=== PATIENT | female | born 1960 | race Caucasian/White ===

== ENCOUNTER 2018-01-29 12:28 | Emergency (ER) | payer MEDICAID ==
[2018-01-29 12:47] VITALS: BMI 43.8
--- NOTE | 2018-01-29 13:15 | ED PDOC ---
Arrival/HPI - General Chief Complaint: Back Pain Time Seen by Provider: 01/29/18 13:12 Historian: Patient - History of Present Illness Narrative History of Present Illness (Text): 01/29/18 13:13 57 year old female, with no significant past medical history, who presents to the emergency department complaining of right lower back pain that radiates to the hip, thigh, and knee x 1 week. Patient describes as a shooting pain with movement. Patient notes she takes ibuprofen with minimal relief. Patient denies any fever, chills, chest pain, shortness of breath, nausea, vomiting, diarrhea, headache, dizziness, or any other complaints. Time/Duration: 1 week Symptom Onset: Gradual Symptom Course: Unchanged Activities at Onset: Light Context: Home Past Medical History - Provider Review Nursing Documentation Reviewed: Yes - Pulmonary Hx Respiratory Disorders: No - Neurological Hx Neurological Disorder: No - HEENT Hx HEENT Disorder: No - Renal Other/Comment: unknown kidney problems. - Endocrine/Metabolic Hx Endocrine Disorders: No - Hematological/Oncological Hx Blood Disorders: No - Integumentary Hx Dermatological Disorder: No - Musculoskeletal/Rheumatological Hx Musculoskeletal Disorders: No - Gastrointestinal Hx Gastrointestinal Disorders: No - Genitourinary/Gynecological Hx Genitourinary Disorders: No - Psychiatric Hx Psychophysiologic Disorder: No Hx Substance Use: No Family/Social History - Physician Review Nursing Documentation Reviewed: Yes Family/Social History: Unknown Family HX Smoking Status: Never Smoked Hx Alcohol Use: No Hx Substance Use: No Allergies/Home Meds Allergies/Adverse Reactions: Allergies Penicillins Allergy (Verified 01/29/18 12:47) SWELLING Home Medications: Home Meds Medication Instructions Recorded Confirmed Acetaminophen [Pain Reliever] 500 mg PO DAILY 01/29/18 01/29/18 Atenolol [Tenormin] 100 mg PO DAILY 01/29/18 01/29/18 Atorvastatin [Lipitor] 10 mg PO DAILY 01/29/18 01/29/18 Levothyroxine [Synthroid] 100 mcg PO DAILY 01/29/18 01/29/18 amLODIPine [Norvasc] 10 mg PO DAILY 01/29/18 01/29/18 Review of Systems - Physician Review All systems were reviewed & negative as marked: Yes - Review of Systems Constitutional: Normal Eyes: Normal ENT: Normal Respiratory: Normal. absent: SOB, Cough Cardiovascular: Normal. absent: Chest Pain Gastrointestinal: Normal. absent: Abdominal Pain, Diarrhea, Nausea, Vomiting Genitourinary Female: Normal. absent: Dysuria, Frequency Musculoskeletal: Back Pain (rt lower back pain that radiates to hip, thigh, and knee.) Skin: Normal. absent: Rash Neurological: Normal. absent: Headache, Dizziness Endocrine: Normal Hemo/Lymphatic: Normal Psychiatric: Normal Physical Exam - Physical Exam Narrative Physical Exam (Text): 01/29/18 13:26 Gen: VS reviewed, alert, well developed, well nourished, nontoxic, mild distress. ENT: normal pharynx. Eye: EOMI, PERRL. Neck: no JVD, supple, no adenopathy. CV: regular rate, regular rhythm, no rubs, no murmur, no gallops, S1, S2, pulses equal and strong. Pulm: no distress, clear to auscultation, no wheeze, no rhonchi, breath sounds equal, no rales. Abd: soft, nontender, no guarding, no rebound, no rigidity, normal bowel sounds. Ext: Decreased ROM at hip. no edema. tenderness SI joint. Evulsion at right Alfred's Surface of DIP joint of 4th digit. Skin: good color, no rash, no cyanosis. Psych: responds appropriately to questions, normal affect. Neuro: oriented x 3, CN2-12 intact grossly, motor intact, sensation intact. Vital Signs Temp Pulse Resp BP Pulse Ox 01/29/18 14:57 97.9 F 55 L 18 140/73 96 Medical Decision Making ED Course and Treatment: 01/29/18 13:29 Impression: 57 year old female presents to the emergency department complaining of right lower back pain that radiates to the hip, thigh, and knee. Plan: -- Tylenol -- Flexeril -- Toradol -- Boostrix Vaccine -- Xray Rt Hip -- Xray rt knee -- Xray LS Spine -- Reassess and disposition Progress Notes: 01/29/18 14:30 Xray Hip/Pelvis: BONES: Bone alignment and mineralization are normal. There is no acute displaced fracture or bone destruction. JOINTS: Normal. SOFT TISSUES: Normal. OTHER FINDINGS: None. IMPRESSION: No acute fracture or dislocation. 01/29/18 14:30 Right Knee X-ray: Creator : Ari Harris MD IMPRESSION: There is joint space narrowing in the medial compartment 01/29/18 14:30 Lumbar Spine X-ray: Creator : Marleny Kumar MD IMPRESSION: No acute fracture, spondylolysis or spondylolisthesis. Mild multilevel degenerative disc disease, worse at L2-3 and L5-S1. 01/29/18 16:19 patient feels much better and ready to go home. patient presents with radicualr low back pain but no associated trauma/fever/hx cancer/neuro deficits such as saddle anesthesia/weakness or numbness. patient remained stable throughout ED course. patient will follow up with her pcp. - RAD Interpretation Radiology Orders: 01/29/18 13:13 HIP MIN 2V W/ PELVIS RT [RAD] Stat LS SPINE WITH OBL > 18 YRS OLD [RAD] Stat 01/29/18 13:14 KNEE W PATELLA RIGHT 3 VIEW [RAD] Stat Net Front End Developer: Radiologist - Medication Orders Current Medication Orders: Discontinued Medications Acetaminophen (Tylenol 325mg Tab) 975 mg PO STAT STA Stop: 01/29/18 13:16 Last Admin: 01/29/18 15:32 Dose: 975 mg MAR Pain/Vitals Document 01/29/18 15:32 [email or web address] (Rec: 01/29/18 15:32 [email or web address] [facility] [id number][place] Pain Reassessment Is This A Pain ReAssessment? No Sleep Is patient sleeping during reassessment? No Presence of Pain Presence of Pain Yes Pain Scale Used Pain Scale Used Numeric Location Pain Location Body Site Generalized Description Constant Intensity 7 Scale Used Numeric Pain Behavior Facial Grimacing Aggravating Factors Changing Position Alleviating Factors Medication Cyclobenzaprine HCl (Flexeril) 5 mg PO STAT STA Stop: 01/29/18 13:16 Last Admin: 01/29/18 15:32 Dose: 5 mg Ketorolac Tromethamine (Toradol) 60 mg IVP STAT STA Stop: 01/29/18 13:16 Last Admin: 01/29/18 15:32 Dose: 60 mg MAR Pain Assessment Document 01/29/18 15:32 [email or web address] (Rec: 01/29/18 15:33 [email or web address] [facility] [place] [id number]) Pain Reassessment Is this a pain reassessment? No Sleep Is patient sleeping during reassessment? No Presence of Pain Presence of Pain Yes Pain Scale Used Pain Scale Used Numeric Location Pain Location Body Site Generalized Description Description Constant Intensity of Pain at present 7 Pain Behavior Facial Grimacing Aggravating Factors Changing Position Alleviating Factors/Management Position Change Techniques Alleviating Factors Medication IVP Administration Document 01/29/18 15:32 [email or web address] (Rec: 01/29/18 15:33 [email or web address] [facility] [place]- [id number]) Charges for Administration # of IVP Administrations 1 Tetanus/Reduced Diphtheria/Acell Pertussis (Boostrix Vaccine Inj) 0.5 ml IM .ONCE ONE Stop: 01/29/18 13:17 Last Admin: 01/29/18 15:33 Dose: 0.5 ml Immunization Registry Document 01/29/18 15:33 [email or web address] (Rec: 01/29/18 15:33 [email or web address] [facility] [place]- [id number]) Immunization Registry Consent Date 01/29/18 - Scribe Statement The provider has reviewed the documentation as recorded by the Scribe Felicita Nguyen All medical record entries made by the Scribe were at my direction and personally dictated by me. I have reviewed the chart and agree that the record accurately reflects my personal performance of the history, physical exam, medical decision making, and the department course for this patient. I have also personally directed, reviewed, and agree with the discharge instructions and disposition. Disposition/Present on Arrival - Present on Arrival Any Indicators Present on Arrival: No History of DVT/PE: No History of Uncontrolled Diabetes: No Urinary Catheter: No History of Decub. Ulcer: No History Surgical Site Infection Following: None - Disposition Have Diagnosis and Disposition been Completed?: Yes Diagnosis: Radiculopathy of lumbar region, Arthritis of right knee Disposition: HOME/ ROUTINE Disposition Time: 16:22 Patient Plan: Discharge Condition: GOOD Discharge Instructions (ExitCare): Radiculopathy, Osteoarthritis, Wound Care Print Language: ROMANIAN Additional Instructions: Return for any new or worsening symptoms. B[facility] SHAW, thank you for letting us take care of you today. Your provider was Dr. Tyrell Weeks and you were treated for BACK AND FINGER PAIN. The emergency medical care you received today was directed at your acute symptoms. If you were prescribed any medication, please fill it and take as directed. It may take several days for your symptoms to resolve. Return to the Emergency Department if your symptoms worsen, do not improve, or if you have any other problems. Please contact your doctor or call one of the physicians/clinics you have been referred to that are listed on the Patient Visit Information form that is included in your discharge packet. Bring any paperwork you were given at discharge with you along with any medications you are taking to your follow up visit. Our treatment cannot replace ongoing medical care by a primary care provider outside of the emergency department. Thank you for allowing the [facility] team to be part of your care today. If you had an X-Ray or CT scan: A Radiologist will review the ED reading if any change in treatment is needed we will contact you. If you had a blood, urine, or wound culture: It will take several days for the results, if any change in treatment is needed we will contact you. If you had an STI test: It will take 48 hours for the results. Please call after 1 week if you have not heard back. Prescriptions: Cyclobenzaprine [Flexeril] 5 mg PO Q8 #10 tab Ibuprofen [Motrin Tab] 600 mg PO QID #30 tab Referrals: Tanna Lo, [Primary Care Provider] - Follow up with primary Forms: [employer] (Czech)
[2018-01-29] MEDS ORDERED: TDAP Vaccine 0.5 mL Syr IM ONE (13:16)
--- NOTE | 2018-01-29 14:27 | RAD ---
PROCEDURE: Right Hip Radiographs. HISTORY: pain COMPARISON: None. FINDINGS: BONES: Bone alignment and mineralization are normal. There is no acute displaced fracture or bone destruction. JOINTS: Normal. SOFT TISSUES: Normal. OTHER FINDINGS: None. IMPRESSION: No acute fracture or dislocation.
--- NOTE | 2018-01-29 14:35 | RAD ---
Date of service: 01/29/2018 PROCEDURE: Right Knee Radiographs. HISTORY: pain COMPARISON: None. FINDINGS: BONES: Normal. No fracture. JOINTS: There is joint space narrowing in the medial compartment JOINT EFFUSION: None. OTHER FINDINGS: None. IMPRESSION: There is joint space narrowing in the medial compartment
[2018-01-29 14:58] VITALS: TEMP 97.9
--- NOTE | 2018-01-29 15:08 | RAD ---
Date of service: 01/29/2018 PROCEDURE: Radiographs of the Lumbar Spine. HISTORY: radicular pain COMPARISON: No prior. FINDINGS: BONES: There is normal alignment of the lumbar vertebral bodies. There is normal lumbar lordosis. There is no acute fracture, spondylolysis or spondylolisthesis. DISC SPACES: There is mild multilevel degenerative disc disease with anterior spurring, reduced disc heights and multilevel facet arthropathy, worse at L2-3 and L5-S1. OTHER FINDINGS: There are no pathologic soft tissue calcifications. Both sacroiliac joints are normal. IMPRESSION: No acute fracture, spondylolysis or spondylolisthesis. Mild multilevel degenerative disc disease, worse at L2-3 and L5-S1.
[2018-01-29 16:54] VITALS: BP 151/75; PULSE 89; RESP 17; O2SAT 98
== END 2018-01-29 16:50 | disposition home or self-care (01) ==
LOC: ED 12:28
DX: M54.16 Radiculopathy, lumbar region (principal); M13.861 Other specified arthritis, right knee
CPT/HCPCS: 72110; 73502; 73562; 90471; 90715; 96374; 99282; J1885